=== PATIENT | male | born 1960 | race Caucasian/White ===

== ENCOUNTER 2020-12-01 00:09 | Inpatient (IN) | payer OTHER ==
[~2020-12-01] VITALS: Ht 177.8 cm; Wt 110.9 kg
[~2020-12-01 00:09] MED LIST: CABERGOLINE0.5 MG PO; NORCO 5-325 TA1 EACH PO
[2020-12-01 02:38] LABS: INR 1.06 (0.9-1.2); PROTHROMBIN TIME 13.1 SECONDS (11.4-13.6); PTT 26.9 SECONDS (22.2-34.7)
[2020-12-01 02:53] LABS: ALBUMIN 3.8 g/dL (3.4-5.0); BILIRUBIN - TOTAL 0.3 mg/dL (0.2-1.0); BUN/CREAT RATIO (CALC) 21.4 RATIO; CREATININE 0.56 mg/dL (0.67-1.17); GLOBULIN (CALCULATION) 4.3 g/dL; LACTIC ACID 2.8 mmol/L (0.4-1.9); POTASSIUM 3.1 mmol/L (3.5-5.1); TOTAL PROTEIN 8.1 g/dL (6.4-8.2)
[2020-12-01 02:59] LABS: BASOPHIL 1.4 % (0-2); HCT 42.9 % (42.0-52.0); HGB 15.1 g/dl (13.2-18.0); LYMPHOCYTE 26.2 % (15-48); MCH 33.6 pg (25.0-31.0); MCHC 35.2 g/dL (32.0-36.0); MCV 95.3 fL (78.0-100.0); MONOCYTE 9.3 % (0-12); MPV 10.8 fL (6.0-9.5); NEUTROPHIL 61.3 % (41-80); NRBC 0; PLT 250 K/uL (150-400); WBC 8.4 K/uL (4.0-10.5)
[2020-12-01 04:00] LABS: BILIRUBIN NEGATIVE (NEGATIVE); BLOOD NEGATIVE Ery/uL (NEGATIVE); CLARITY CLEAR (CLEAR); COLOR YELLOW (YELLOW); GLUCOSE (U) NORMAL (NORMAL); LEUKOCYTES NEGATIVE Leu/uL (NEGATIVE); NITRITE NEGATIVE (NEGATIVE); PROTEIN 1+ mg/dL (NEGATIVE)
[2020-12-01 04:02] LABS: ECSTASY (MDMA) NEGATIVE (NEGATIVE); MARIJUANA (THC) POSITIVE (NEGATIVE); METHADONE NEGATIVE (NEGATIVE); OPIATES NEGATIVE (NEGATIVE)
[2020-12-01 04:03] LABS: AMPHETAMINES POSITIVE (NEGATIVE); BARBITURATES NEGATIVE (NEGATIVE); OXYCODONE NEGATIVE (NEGATIVE)
[2020-12-01 04:17] LABS: BACTERIA TRACE
[2020-12-03 05:53] LABS: BASOPHIL 0.7 % (0-2); EOSINOPHIL 0.9 % (0-5); HCT 41.7 % (42.0-52.0); HGB 14.1 g/dl (13.2-18.0); MCH 33.6 pg (25.0-31.0); MCHC 33.8 g/dL (32.0-36.0); MCV 99.3 fL (78.0-100.0); MONOCYTE 6.9 % (0-12); MPV 11.1 fL (6.0-9.5); NEUTROPHIL 63.3 % (41-80); NRBC 0; PLT 208 K/uL (150-400); RDW 15.4 % (11.5-14.0)
[2020-12-03 06:15] LABS: BILIRUBIN - TOTAL 0.6 mg/dL (0.2-1.0); BUN/CREAT RATIO (CALC) 15.1 RATIO; CREATININE 0.73 mg/dL (0.67-1.17); GLOBULIN (CALCULATION) 3.6 g/dL; MAGNESIUM 1.9 mg/dL (1.8-2.4); POTASSIUM 3.8 mmol/L (3.5-5.1); TOTAL PROTEIN 6.6 g/dL (6.4-8.2)
[2020-12-03] MEDS ORDERED: LOSARTAN POTASS25 MG PO (10:45)
[2020-12-03] MEDS ORDERED: HABITROL14 MG TD (10:45)
[2020-12-03] MEDS ORDERED: MLYLANTA/MAALOX30 ML PO (10:45)
[2020-12-03] MEDS ORDERED: B-1100 MG PO (10:45)
[2020-12-03] MEDS ORDERED: PANTOPRAZOLE SO40 MG PO (10:45)
== END 2020-12-03 13:45 | disposition home or self-care (01) | DRG 897 ==
LOC: FER 00:09 → FTCU 07:57
PROVIDERS: Emergency Medicine Emergency Medical Services; Internal Medicine; ADMIT Internal Medicine
PROC: HZ2ZZZZ Detoxification Services for Substance Abuse Treatment (ICD-10-PCS; principal; 2020-12-01)
DX: F10.129 Alcohol abuse with intoxication, unspecified (principal); K29.20 Alcoholic gastritis without bleeding; E87.6 Hypokalemia; Z20.822 Contact with and (suspected) exposure to COVID-19; Y90.8 Blood alcohol level of 240 mg/100 ml or more; I10 Essential (primary) hypertension; J44.9 Chronic obstructive pulmonary disease, unspecified; F17.210 Nicotine dependence, cigarettes, uncomplicated; Z96.643 Presence of artificial hip joint, bilateral; Z90.81 Acquired absence of spleen; Z98.890 Other specified postprocedural states; Z88.8 Allergy status to other drugs, medicaments and biological substances
CPT/HCPCS: 36415; 70450; 80053; 80305; 81001; 83605; 83690; 83735; 84145; 85025; 85610; 85730; 94010; G0480; J1100; J1200; J1650; J1885; J2270; J2405; J2550; J2560; J2765; J3411; J3475; J7030; J7120; Q9967; U0002

== ENCOUNTER 2021-04-24 18:20 | Emergency (ER) | payer OTHER ==
[~2021-04-24] VITALS: Ht 175.3 cm; Wt 99.8 kg
[~2021-04-24 18:20] MED LIST changes: +B-1100 MG PO; +HABITROL14 MG TD; +LOSARTAN POTASS25 MG PO; +MLYLANTA/MAALOX30 ML PO; +PANTOPRAZOLE SO40 MG PO
[2021-04-24 19:01] LABS: BASOPHIL 1.6 % (0-2); EOSINOPHIL 0.4 % (0-5); HCT 39.9 % (42.0-52.0); HGB 13.9 g/dl (13.2-18.0); LYMPHOCYTE 37.3 % (15-48); MCH 34.2 pg (25.0-31.0); MCHC 34.8 g/dL (32.0-36.0); MCV 98.3 fL (78.0-100.0); MONOCYTE 12.7 % (0-12); NEUTROPHIL 47.7 % (41-80); NRBC 0; PLT 209 K/uL (150-400); RBC 4.06 M/uL (4.70-6.00); RDW 14.4 % (11.5-14.0); WBC 7.7 K/uL (4.0-10.5)
[2021-04-24 19:28] LABS: ALBUMIN 3.6 g/dL (3.4-5.0); BILIRUBIN - TOTAL 0.3 mg/dL (0.2-1.0); BUN/CREAT RATIO (CALC) 22.7 RATIO; CREATININE 0.88 mg/dL (0.67-1.17); GLOBULIN (CALCULATION) 3.7 g/dL; MAGNESIUM 1.6 mg/dL (1.8-2.4); PHOSPHORUS 2.5 mg/dL (2.6-4.7); POTASSIUM 3.2 mmol/L (3.5-5.1); TOTAL PROTEIN 7.3 g/dL (6.4-8.2)
== END 2021-04-25 11:00 | disposition other institution (70) ==
LOC: FER 18:20
PROVIDERS: Emergency Medicine
DX: F10.229 Alcohol dependence with intoxication, unspecified (principal); F17.210 Nicotine dependence, cigarettes, uncomplicated; Z88.6 Allergy status to analgesic agent; Y90.8 Blood alcohol level of 240 mg/100 ml or more; Z20.822 Contact with and (suspected) exposure to COVID-19
CPT/HCPCS: 36415; 80053; 83690; 83735; 84100; 85025; 93005; G0480; J2060; J3411; J7030; U0002